=== PATIENT | male | born 1975 | race Caucasian/White ===

== ENCOUNTER 2016-12-07 20:43 | Observation (INO) | payer OTHER | END 2016-12-09 11:57 | disposition other institution (70) | LOC: ER 20:43 → MS 23:39 | PROVIDERS: ADMIT Family Medicine | PROC: 0H9AXZZ Drainage of Inguinal Skin, External Approach (ICD-10-PCS; principal; 2016-12-08) | DX: N49.2 Inflammatory disorders of scrotum (principal); R10.30 Lower abdominal pain, unspecified; B96.89 Other specified bacterial agents as the cause of diseases classified elsewhere; B95.62 Methicillin resistant Staphylococcus aureus infection as the cause of diseases classified elsewhere; Z87.442 Personal history of urinary calculi | CPT/HCPCS: 36415; 80053; 82550; 82553; 83605; 85025; 87040; 87070; 93005; 96361; 96365; 96366; 96367; 96375; 96376; 99070; 99284-25; G0378; J1170; J3370; J7050 ==

== ENCOUNTER 2016-12-07 20:43 | Inpatient (IN) | payer OTHER ==
[2016-12-07 22:17] LABS: BASO % 0.2 % (0.2-1.2); EOS # 0.2 10_X3_uL (0.0-0.5); EOS % 1.5 % (0.8-7.0); GRAN # 6.5 10_X3_uL (1.8-5.4); GRAN % 64.6 % (34.0-67.9); HEMATOCRIT 38.7 % (40-51); HEMOGLOBIN 13.4 g/dL (13.7-17.5); LYMPH # 2.2 10_X3_uL (1.3-3.6); LYMPH % 21.5 % (21.8-53.1); MEAN CORPUSCULAR HEMOGLOBIN 28.2 pg (27.0-33.0); MEAN CORPUSCULAR HGB CONC 34.6 g/dL (32.0-36.0); MEAN CORPUSCULAR VOLUME 81.5 fL (79-92); MEAN PLATELET VOLUME 10.7 fl (7.5-11.5); MONO # 1.2 10_X3_uL (0.3-0.8); MONO % 12.2 % (5.3-12.2); PLATELET COUNT 240 x10_3/uL (163-337); RED BLOOD COUNT 4.75 x10_6/uL (4.6-6.1); RED CELL DISTRIBUTION WIDTH 12.4 % (11.6-14.4)
[2016-12-07 22:34] LABS: ALBUMIN 3.4 gm/dL (3.4-5.0); ALKALINE PHOSPHATASE 104 U/L (50-136); ALT/SGPT 46 U/L (7.53-40.17); AST/SGOT 18 U/L (6.66-35.34); BILIRUBIN,TOTAL 0.28 mg/dL (0.0-1.0); BLOOD UREA NITROGEN 7 mg/dL (7-18); CALCIUM 9.2 mg/dL (8.7-10.7); CARBON DIOXIDE 24 mmol/L (21-32); CREATININE 0.5 mg/dL (0.6-1.3); GLUCOSE,RANDOM 117 mg/dL (70-99); POTASSIUM 4.3 mmol/L (3.5-5.1); SODIUM 141 mmol/L (136-145); TOTAL PROTEIN 6.4 gm/dL (6.4-8.2)
[2016-12-08 21:52] LABS: CKMB < 1.0 ng/ml (0.0-5.0); TROP-I < 0.30 NG/ML (0.00-0.30)
[2016-12-09 07:17] LABS: MEAN CORPUSCULAR HEMOGLOBIN 27.8 pg (27.0-33.0); MEAN CORPUSCULAR HGB CONC 34.3 g/dL (32.0-36.0); MEAN CORPUSCULAR VOLUME 81.2 fL (79-92); MEAN PLATELET VOLUME 10.2 fl (7.5-11.5); RED BLOOD COUNT 4.31 x10_6/uL (4.6-6.1); WHITE BLOOD COUNT 6.7 x10_3/uL (4.2-9.1)
[2016-12-09 07:38] LABS: AHDL CHOLESTEROL 27 mg/dL (>40); ALBUMIN 2.9 gm/dL (3.4-5.0); ALKALINE PHOSPHATASE 80 U/L (50-136); ALT/SGPT 35 U/L (7.53-40.17); AST/SGOT 20 U/L (6.66-35.34); BLOOD UREA NITROGEN 7 mg/dL (7-18); CALCIUM 9.1 mg/dL (8.7-10.7); CARBON DIOXIDE 28 mmol/L (21-32); CHOLESTEROL 95 mg/dL (0-200); CREATININE 0.5 mg/dL (0.6-1.3); GLUCOSE,RANDOM 96 mg/dL (70-99); LDL CHOLESTEROL 54 mg/dL (0-99); POTASSIUM 4.2 mmol/L (3.5-5.1); SODIUM 140 mmol/L (136-145); TOTAL PROTEIN 5.7 gm/dL (6.4-8.2); TRIGLYCERIDES 70 mg/dL (30-200)
[2016-12-10 09:28] LABS: HEMATOCRIT 35.5 % (40-51); HEMOGLOBIN 12.7 g/dL (13.7-17.5); MEAN CORPUSCULAR HEMOGLOBIN 28.7 pg (27.0-33.0); MEAN CORPUSCULAR HGB CONC 35.8 g/dL (32.0-36.0); MEAN CORPUSCULAR VOLUME 80.1 fL (79-92); MEAN PLATELET VOLUME 10.3 fl (7.5-11.5); RED BLOOD COUNT 4.43 x10_6/uL (4.6-6.1); RED CELL DISTRIBUTION WIDTH 11.8 % (11.6-14.4); WHITE BLOOD COUNT 4.7 x10_3/uL (4.2-9.1)
[2016-12-10 10:00] LABS: BLOOD UREA NITROGEN 10 mg/dL (7-18); CARBON DIOXIDE 26 mmol/L (21-32); CREATININE 0.5 mg/dL (0.6-1.3); GLUCOSE,RANDOM 109 mg/dL (70-99); SODIUM 139 mmol/L (136-145)
[2016-12-11 06:41] LABS: BLOOD UREA NITROGEN 10 mg/dL (7-18); CARBON DIOXIDE 25 mmol/L (21-32); CREATININE 0.5 mg/dL (0.6-1.3); GLUCOSE,RANDOM 85 mg/dL (70-99); POTASSIUM 4.3 mmol/L (3.5-5.1); SODIUM 142 mmol/L (136-145)
[2016-12-11 07:04] LABS: HEMATOCRIT 35.2 % (40-51); HEMOGLOBIN 12.6 g/dL (13.7-17.5); MEAN CORPUSCULAR HEMOGLOBIN 28.6 pg (27.0-33.0); MEAN CORPUSCULAR HGB CONC 35.8 g/dL (32.0-36.0); MEAN PLATELET VOLUME 10.5 fl (7.5-11.5); RED BLOOD COUNT 4.4 x10_6/uL (4.6-6.1)
[2016-12-11 15:36] LABS: CALCIUM 8.9 mg/dL (8.7-10.7)
== END 2016-12-11 10:10 | disposition home or self-care (01) | DRG 728 ==
LOC: ER 20:43 → MS 23:39
PROVIDERS: Internal Medicine; ADMIT Family Medicine
DX: N49.2 Inflammatory disorders of scrotum (principal); R10.30 Lower abdominal pain, unspecified; B96.89 Other specified bacterial agents as the cause of diseases classified elsewhere; B95.62 Methicillin resistant Staphylococcus aureus infection as the cause of diseases classified elsewhere; Z87.442 Personal history of urinary calculi
CPT/HCPCS: 36415; 80048; 80053; 80061; 80202; 82550; 82553; 83036; 83605; 85025; 87040; 87070; 87186; 93005; 96365; 96375; 99070; 99284-25; J1170; J3370; J7050